=== PATIENT | female | born 2000 | race Caucasian/White ===

== ENCOUNTER 2020-06-09 08:43 | Emergency (ER) | payer OTHER, MEDICAID ==
[~2020-06-09] VITALS: Ht 154.9 cm; Wt 70.3 kg
[2020-06-09] MEDS ORDERED: SINGULAIR 10 MG10 M1 PO (08:55)
[2020-06-09] MEDS ORDERED: SEIZURE MED (08:56)
[2020-06-09 09:22] LABS: ABSOLUTE LYMPHOCYTES 1.5 thou/uL (0.8-5.3); ABSOLUTE MONOCYTES 0.4 thou/uL (0.0-1.2); ABSOLUTE NEUTROPHILS 3.8 thou/uL (1.6-8.1); BASOPHILS 0.6 %; EOSINOPHILS 0.3 %; HEMATOCRIT 38.7 % (37.0-47.0); HEMOGLOBIN 13.6 gm/dL (12.0-15.0); LYMPHOCYTES 25.5 %; MCH 29.2 pg (26.0-34.0); MCV 83.4 fL (80.0-100.0); MONOCYTES 7.4 %; MPV 8.7 fl. (7.2-11.1); NUCLEATED RBCS 0 /100WBC; PLATELET COUNT* 196 thou/uL (150-400); POLYS 66.2 %; RBC 4.64 mil/uL (4.20-5.00); RDW-CV 13.6 % (10.5-14.5); WBC 5.8 thou/uL (4.0-11.0)
[2020-06-09 09:30] LABS: CALCIUM 8.5 mg/dL (8.5-10.1); CREATININE 0.9 mg/dL (0.6-1.3); POTASSIUM 3.9 mmol/L (3.5-5.1)
[2020-06-09 09:33] LABS: ALBUMIN 3.8 g/dL (3.4-5.0); TOTAL BILIRUBIN 0.4 mg/dL (<0.1-1.0); TOTAL PROTEIN 7.1 g/dL (6.4-8.2)
[2020-06-09 10:48] LABS: URINE BILIRUBIN NEGATIVE (Negative); URINE BLOOD NEGATIVE (Negative); URINE CLARITY CLEAR; URINE COLOR YELLOW; URINE GLUCOSE-RANDOM NEGATIVE (Negative); URINE KETONES NEGATIVE (Negative); URINE LEUKOCYTES-REFLEX NEGATIVE (Negative); URINE NITRITE-REFLEX NEGATIVE (Negative); URINE PROTEIN NEGATIVE (Negative); URINE SPECIFIC GRAVITY 1.015 (1.005-1.030); URINE UROBILINOGEN 0.2 E.U./dl (0.2-1.0)
[2020-06-09 11:48] VITALS: BP 111/61
== END 2020-06-09 11:49 | disposition home or self-care (01) ==
LOC: M.ERS 08:43
PROVIDERS: Emergency Medicine Emergency Medical Services
DX: R10.9 Unspecified abdominal pain (principal); R11.0 Nausea; J45.909 Unspecified asthma, uncomplicated; Z91.040 Latex allergy status; Z88.8 Allergy status to other drugs, medicaments and biological substances

== ENCOUNTER 2020-07-10 15:34 | Emergency (ER) | payer OTHER, MEDICAID ==
[~2020-07-10] VITALS: Ht 154.9 cm; Wt 77.1 kg
[~2020-07-10 15:34] MED LIST: SEIZURE MED; SINGULAIR 10 MG10 M1 PO
[2020-07-10 16:27] LABS: ABSOLUTE BASOPHILS 0.1 thou/uL (0.0-0.2); ABSOLUTE LYMPHOCYTES 1.7 thou/uL (0.8-5.3); ABSOLUTE MONOCYTES 0.5 thou/uL (0.0-1.2); ABSOLUTE NEUTROPHILS 5.4 thou/uL (1.6-8.1); BASOPHILS 0.9 %; EOSINOPHILS 0.4 %; HEMATOCRIT 36.7 % (37.0-47.0); HEMOGLOBIN 12.8 gm/dL (12.0-15.0); LYMPHOCYTES 22.2 %; MCH 29.3 pg (26.0-34.0); MCHC 34.8 g/dL (28.0-37.0); MCV 84.1 fL (80.0-100.0); MPV 8.5 fl. (7.2-11.1); NUCLEATED RBCS 0 /100WBC; PLATELET COUNT* 203 thou/uL (150-400); POLYS 70.5 %; RBC 4.36 mil/uL (4.20-5.00); RDW-CV 14.3 % (10.5-14.5); WBC 7.7 thou/uL (4.0-11.0)
[2020-07-10] MEDS ORDERED: VENTOLIN HFA 1818 GM INH ×2 (16:29→17:05)
[2020-07-10 16:37] LABS: CALCIUM 8.9 mg/dL (8.5-10.1); CREATININE 0.9 mg/dL (0.6-1.3); POTASSIUM 3.4 mmol/L (3.5-5.1)
[2020-07-10 16:48] LABS: ALBUMIN 3.7 g/dL (3.4-5.0); TOTAL BILIRUBIN 0.3 mg/dL (<0.1-1.0); TOTAL PROTEIN 7.4 g/dL (6.4-8.2)
[2020-07-10] MEDS ORDERED: FLEXERIL PO (17:05)
[2020-07-10 17:22] VITALS: BP 114/69
--- NOTE | 2020-07-11 15:08 | EKG ---
[place] [address] ELECTROCARDIOGRAM REPORT Name: NICOLETTE ALBRECHT Room: [facility]#: [id number] Admission: 07/10/20 Attend Phys: Discharge: 07/10/20 Date of : 89 Date of Service: 07/10/20 1625 Report #: [id number] THIS REPORT FOR: //name// [facility] ED Test Date: 2020-07-10 Test Time: 16:25:01 Pat Name: NICOLETTE ALBRECHT Department: Room: Gender: Account Resolution Expert: [facility] : 2000 Requested By: Kasey Hyatt Order Number: [id number] MD: Perry Paez Measurements Intervals [place] Rate: 83 P: 30 MI: 152 QRS: 36 QRSD: 95 T: -3 QT: 375 QTc: 441 Interpretive Statements Sinus rhythm Low voltage, precordial leads Nonspecific T abnrm, anterolateral leads No previous ECG available for comparison Electronically Signed On 07-11-2020 15:08:40 CDT by Perry Paez [email or web address] <ELECTRONICALLY SIGNED> By: Perry Paez MD, [facility] 07/11/20 1508 1625 1625 Perry Paez MD, [facility] /EPI
== END 2020-07-10 17:24 | disposition home or self-care (01) ==
LOC: M.ERS 15:34
PROVIDERS: Nurse Practitioner Family
DX: J45.909 Unspecified asthma, uncomplicated (principal); Z91.040 Latex allergy status; Z88.8 Allergy status to other drugs, medicaments and biological substances